=== PATIENT | female | born 1980 | race Caucasian/White ===

== ENCOUNTER 2018-12-05 20:58 | Inpatient (IN) | payer OTHER ==
[~2018-12-05] VITALS: Ht 165.1 cm; Wt 81.6 kg
[2018-12-05 16:07] VITALS: BP 119/83
[2018-12-05 16:53] LABS: HCG UR SG 1.024 (1.003-1.030)
[2018-12-05] MEDS: FENTANYL PF 100 MCG/2ML IV PRN ×2 (20:08→20:15)
[~2018-12-05 20:58] MED LIST: ACETAMINOPHEN 500 MG TABLET ONE; ACETAMINOPHEN 500 MG TABLET PO ONE; ALBUTEROL/IPRATROPIUM 2.5MG/0.5MG, 3 ML NPPB PRN; BACITRACIN OINT 500U/GM, 15 GM ONE; BUPIVACAINE/PF 0.25% INFIL ONE; BUPIVACAINE/PF 0.25% ONE; CEFAZOLIN 1,000 MG ONE; DEXAMETHASONE 4 MG/ML, 1ML ONE; DIAZEPAM 5 MG TABLET ONE; DIAZEPAM 5 MG TABLET PO ONE; EPINEPHRINE 1 MG/ML, 1ML ONE; FENTANYL PF 100 MCG/2ML ONE; FENTANYL PF 250 MCG/5ML ONE; GABAPENTIN 300 MG CAPSULE ONE; GABAPENTIN 300 MG CAPSULE PO ONE; HYDROmorphone 2 MG/ML, 1ML IVPush PRN; KETOROLAC 30 MG/1 ML ONE; LACTATED RINGERS 1,000 ML IV SCH; LIDOCAINE 2%, 6 ML JEL.PF.APP MM ONE; MEPERIDINE/PF 25MG/0.5ML IVPush PRN; MEPERIDINE/PF 25MG/ML,1ML ONE; MIDAZOLAM 1 MG/ML, 2ML IV PRN; MIDAZOLAM 1 MG/ML, 2ML ONE; MINERAL OIL 10 ML VIAL MC ONE; ONDANSETRON 2MG/ML, 2ML IV PRN; ONDANSETRON 2MG/ML, 2ML ONE; OXYC5TAB2 PO; OXYcodone 5 MG/5 ML ORAL.SOL UDC ONE; OXYcodone 5 MG/5 ML ORAL.SOL UDC PO PRN; OxyconTIN ER 20 MG TAB.ER ONE; OxyconTIN ER 20 MG TAB.ER PO ONE; PROMETHAZINE 25 MG/ML, 1ML IV PRN; PROPOFOL 10 MG/ML, 20ML ONE; ROCURONIUM 10MG/ML,5ML ONE; SCOPOLAMINE PATCH, 1.5MG PATCH.TD72 TD PRN; SODIUM CHLORIDE 0.9% 100 ML ONE; SUCCINYLCHOLINE 20 MG/ML, 10ML ONE
[2018-12-05] MEDS ORDERED: OXYcodone/APAP 7.5/325MG TABLET PO PRN (21:00)
[2018-12-06 04:20] VITALS: BP 109/61
[2018-12-06 07:03] VITALS: BP 99/54
[2018-12-06] MEDS ORDERED: OXYC-306 PO (08:57)
== END 2018-12-06 12:30 | disposition home or self-care (01) | DRG 578 ==
LOC: OR 20:58 → 4NOR 21:02 → OR 21:02 → 4NOR 21:43 → DCLOUNGE 12-06 12:17
PROVIDERS: ADMIT Plastic Surgery; ATTEND Plastic Surgery
PROC: 0HQKXZZ Repair Right Lower Leg Skin, External Approach (ICD-10-PCS; 2018-12-05)
PROC: 0HBHXZZ Excision of Right Upper Leg Skin, External Approach (ICD-10-PCS; 2018-12-05)
PROC: 0HRKX74 Replacement of Right Lower Leg Skin with Autologous Tissue Substitute, Partial Thickness, External Approach (ICD-10-PCS; principal; 2018-12-05 17:30)
PROC: 0JBN0ZZ Excision of Right Lower Leg Subcutaneous Tissue and Fascia, Open Approach (ICD-10-PCS; 2018-12-05 17:30)
DX: S81.811A Laceration without foreign body, right lower leg, initial encounter (principal); V29.9XXA Motorcycle rider (driver) (passenger) injured in unspecified traffic accident, initial encounter; J45.909 Unspecified asthma, uncomplicated; Y93.89 Activity, other specified; Y92.89 Other specified places as the place of occurrence of the external cause; Y99.8 Other external cause status
CPT/HCPCS: 81025; G0378; J0171; J0690; J1100; J1885; J2175; J2250; J2405; J2704; J3010; J3490; J0330; J7120

== ENCOUNTER 2019-09-25 17:29 | Emergency (ER) | payer OTHER ==
[~2019-09-25] VITALS: Ht 165.1 cm; Wt 98.2 kg
[~2019-09-25 17:29] MED LIST changes: -ACETAMINOPHEN 500 MG TABLET ONE; -ACETAMINOPHEN 500 MG TABLET PO ONE; -ALBUTEROL/IPRATROPIUM 2.5MG/0.5MG, 3 ML NPPB PRN; -BACITRACIN OINT 500U/GM, 15 GM ONE; -BUPIVACAINE/PF 0.25% INFIL ONE; -BUPIVACAINE/PF 0.25% ONE; -CEFAZOLIN 1,000 MG ONE; -DEXAMETHASONE 4 MG/ML, 1ML ONE; -DIAZEPAM 5 MG TABLET ONE; -DIAZEPAM 5 MG TABLET PO ONE; -EPINEPHRINE 1 MG/ML, 1ML ONE; -FENTANYL PF 100 MCG/2ML ONE; -FENTANYL PF 250 MCG/5ML ONE; -GABAPENTIN 300 MG CAPSULE ONE; -GABAPENTIN 300 MG CAPSULE PO ONE; -HYDROmorphone 2 MG/ML, 1ML IVPush PRN; -KETOROLAC 30 MG/1 ML ONE; -LACTATED RINGERS 1,000 ML IV SCH; -LIDOCAINE 2%, 6 ML JEL.PF.APP MM ONE; -MEPERIDINE/PF 25MG/0.5ML IVPush PRN; -MEPERIDINE/PF 25MG/ML,1ML ONE; -MIDAZOLAM 1 MG/ML, 2ML IV PRN; -MIDAZOLAM 1 MG/ML, 2ML ONE; -MINERAL OIL 10 ML VIAL MC ONE; -ONDANSETRON 2MG/ML, 2ML IV PRN; -ONDANSETRON 2MG/ML, 2ML ONE; +OXYC-306 PO; -OXYcodone 5 MG/5 ML ORAL.SOL UDC ONE; -OXYcodone 5 MG/5 ML ORAL.SOL UDC PO PRN; -OxyconTIN ER 20 MG TAB.ER ONE; -OxyconTIN ER 20 MG TAB.ER PO ONE; -PROMETHAZINE 25 MG/ML, 1ML IV PRN; -PROPOFOL 10 MG/ML, 20ML ONE; -ROCURONIUM 10MG/ML,5ML ONE; -SCOPOLAMINE PATCH, 1.5MG PATCH.TD72 TD PRN; -SODIUM CHLORIDE 0.9% 100 ML ONE; -SUCCINYLCHOLINE 20 MG/ML, 10ML ONE
[2019-09-25 17:57] VITALS: BP 131/85
== END 2019-09-25 19:18 | disposition home or self-care (01) ==
LOC: ED 19:05
DX: J18.9 Pneumonia, unspecified organism (principal)
CPT/HCPCS: 99283

== ENCOUNTER 2020-07-14 10:08 | Outpatient (CLI) | payer OTHER ==
[~2020-07-14] VITALS: Ht 165.1 cm; Wt 102.7 kg
[2020-07-14 10:38] VITALS: BP 127/71
[2020-07-14 11:21] LABS: ALANINE AMINOTRANSFERASE 108 U/L (12-78); ALBUMIN 2.6 g/dL (3.4-5.0); ANION GAP 9 mmol/L (5-15); CALCIUM 8.8 mg/dL (8.5-10.1); CHLORIDE 110 mmol/L (98-107); CREATININE 0.57 mg/dL (0.55-1.02)
[2020-07-14 11:23] LABS: ALKALINE PHOSPHATASE 117 U/L (45-117); BILIRUBIN,TOTAL 0.5 mg/dL (0.2-1.0); TOTAL PROTEIN 6.5 g/dL (6.4-8.2)
[2020-07-14 12:18] LABS: BASOPHILS % (AUTO) 0 % (0-1); EOSINOPHILS % (AUTO) 1 % (1-7); LYMPHOCYTES % (AUTO) 10 % (22-44); MEAN CORPUSCULAR HEMOGLOBIN 30.5 pg (27.0-34.8); MEAN CORPUSCULAR HGB CONC 33.6 g/dL (32.4-35.8); MEAN PLATELET VOLUME 8.9 fL (7.4-10.4); MONOCYTES % (AUTO) 7 % (2-9); NEUTROPHILS % (AUTO) 82 % (42-75); PLATELET COUNT 290 x10^3/uL (130-400); RED BLOOD COUNT 4.31 x10^6/uL (3.82-5.3); RED CELL DISTRIBUTION WIDTH 13.9 % (9.6-15.2)
[2020-07-14 12:33] LABS: MD SCAN
[2020-07-14 12:33] LABS: CREATININE,URINE RANDOM < 13.00 mg/dL; TOTAL PROTEIN,URINE RANDOM < 5 mg/dL (0-12)
[2020-07-14] MEDS ORDERED: URSO300C12 PO (13:08)
== END 2020-07-14 13:30 | disposition home or self-care (01) ==
LOC: LDOP 10:08
PROVIDERS: ATTEND Obstetrics & Gynecology
DX: O09.93 Supervision of high risk pregnancy, unspecified, third trimester (principal); O26.893 Other specified pregnancy related conditions, third trimester; L29.9 Pruritus, unspecified; Z3A.35 35 weeks gestation of pregnancy
CPT/HCPCS: 36415; 59025; 76819; 80053; 82239; 82570; 84156; 85025

== ENCOUNTER 2020-07-19 15:09 | Outpatient (CLI) | payer OTHER ==
[~2020-07-19 15:09] MED LIST changes: +URSO300C12 PO
[2020-07-19 15:21] VITALS: BP 131/79
[2020-07-19 16:41] LABS: ALANINE AMINOTRANSFERASE 60 U/L (12-78); ALBUMIN 2.6 g/dL (3.4-5.0); ANION GAP 9 mmol/L (5-15); CALCIUM 8.6 mg/dL (8.5-10.1); CHLORIDE 110 mmol/L (98-107)
[2020-07-19 16:43] LABS: ALKALINE PHOSPHATASE 111 U/L (45-117); BILIRUBIN,TOTAL 0.4 mg/dL (0.2-1.0); CREATININE 0.61 mg/dL (0.55-1.02); TOTAL PROTEIN 6.5 g/dL (6.4-8.2)
== END 2020-07-19 16:58 | disposition home or self-care (01) ==
LOC: LDOP 15:09
PROVIDERS: ATTEND Obstetrics & Gynecology
DX: O09.893 Supervision of other high risk pregnancies, third trimester (principal); Z3A.35 35 weeks gestation of pregnancy
CPT/HCPCS: 36415; 59025; 80053

== ENCOUNTER 2020-07-29 10:08 | Inpatient (IN) | payer OTHER ==
[~2020-07-29] VITALS: Ht 165.1 cm; Wt 100.4 kg
[2020-07-29 10:39] VITALS: BP 140/81
[2020-07-29] MEDS ORDERED: SODIUM CITRATE/CITRIC ACID 30 ML UDC PO ONE (11:00)
[2020-07-29] MEDS ORDERED: LACTATED RINGERS 1,000 ML IV SCH (11:00)
[2020-07-29] MEDS ORDERED: METOCLOPRAMIDE 5 MG/ML, 2ML IV ONE (11:00)
[2020-07-29] MEDS ORDERED: LACTATED RINGERS 1,000 ML IVBOLUS ONE (11:00)
[2020-07-29] MEDS ORDERED: NEWBORN KIT ONE (11:03)
[2020-07-29] MEDS ORDERED: OXYTOCIN 30U/ 0.9% NaCL 500ML 500 ML ONE (11:03)
[2020-07-29 11:04] LABS: BASOPHILS % (AUTO) 1 % (0-1); EOSINOPHILS % (AUTO) 1 % (1-7); LYMPHOCYTES % (AUTO) 14 % (22-44); MEAN CORPUSCULAR HEMOGLOBIN 30.2 pg (27.0-34.8); MEAN CORPUSCULAR HGB CONC 33.5 g/dL (32.4-35.8); MEAN PLATELET VOLUME 8.3 fL (7.4-10.4); MONOCYTES % (AUTO) 6 % (2-9); NEUTROPHILS % (AUTO) 79 % (42-75); PLATELET COUNT 291 x10^3/uL (130-400); RED BLOOD COUNT 4.36 x10^6/uL (3.82-5.3); RED CELL DISTRIBUTION WIDTH 13.7 % (9.6-15.2)
[2020-07-29] MEDS ORDERED: METOCLOPRAMIDE 5 MG/ML, 2ML ONE ×2 (11:04→12:15)
[2020-07-29] MEDS ORDERED: SODIUM CITRATE/CITRIC ACID 15 ML UDC ONE (11:04)
[2020-07-29 11:08] LABS: MD NO
[2020-07-29] MEDS ORDERED: PROMETHAZINE 25 MG/ML, 1ML IVPush PRN (12:00)
[2020-07-29] MEDS ORDERED: EPHEDRINE 50 MG/ML, 1ML IVPush PRN (12:00)
[2020-07-29] MEDS ORDERED: FENTANYL PF 100 MCG/2ML IV PRN (12:00)
[2020-07-29] MEDS ORDERED: MEPERIDINE/PF 25MG/0.5ML IVPush PRN (12:00)
[2020-07-29] MEDS ORDERED: OXYcodone 5 MG/5 ML ORAL.SOL UDC PO PRN (12:00)
[2020-07-29] MEDS ORDERED: ONDANSETRON 2MG/ML, 2ML IVPush PRN (12:00)
[2020-07-29] MEDS ORDERED: morphine SULFATE 10 MG/ML, 1ML IVPush PRN (12:00)
[2020-07-29] MEDS ORDERED: SODIUM CITRATE/CITRIC ACID 30 ML UDC ONE (12:15)
[2020-07-29] MEDS ORDERED: CEFAZOLIN 1,000 MG ONE (12:15)
[2020-07-29] MEDS ORDERED: OXYTOCIN 10 UNITS/ML, 1ML ONE (12:15)
[2020-07-29] MEDS ORDERED: ONDANSETRON 2MG/ML, 2ML IV PRN (13:30)
[2020-07-29] MEDS ORDERED: MISOPROSTOL 200 MCG TABLET PR PRN (13:30)
[2020-07-29] MEDS ORDERED: MORPHINE SULFATE 4 MG/ML, 1ML IVPush PRN (13:30)
[2020-07-29] MEDS: LACTATED RINGERS 1,000 ML IV SCH ×4 (13:30→23:30)
[2020-07-29] MEDS: OXYTOCIN 30U/ 0.9% NaCL 500ML 500 ML IV SCH ×2 (14:04→23:30)
[2020-07-29] MEDS ORDERED: OXYcodone 5 MG/5 ML ORAL.SOL UDC ONE (15:02)
[2020-07-29 16:10] VITALS: BP 120/73
[2020-07-29] MEDS: OXYcodone IR 5MG TABLET PO PRN (19:20)
[2020-07-29] MEDS: KETOROLAC 30 MG/1 ML IV SCH (19:20)
[2020-07-29 19:30] VITALS: BP 111/73
[2020-07-30] VITALS: BP 123/79
[2020-07-30] MEDS: OXYcodone IR 5MG TABLET PO PRN ×6 (00:01→20:08)
[2020-07-30] MEDS: KETOROLAC 30 MG/1 ML IV SCH ×4 (01:15→20:07)
[2020-07-30 04:15] VITALS: BP 107/72
[2020-07-30] MEDS: LACTATED RINGERS 1,000 ML IV SCH ×5 (05:30→21:30)
[2020-07-30 06:50] LABS: BASOPHILS % (AUTO) 0 % (0-1); EOSINOPHILS % (AUTO) 2 % (1-7); LYMPHOCYTES % (AUTO) 16 % (22-44); MEAN CORPUSCULAR HEMOGLOBIN 31.2 pg (27.0-34.8); MEAN PLATELET VOLUME 8.5 fL (7.4-10.4); MONOCYTES % (AUTO) 8 % (2-9); NEUTROPHILS % (AUTO) 74 % (42-75); PLATELET COUNT 263 x10^3/uL (130-400); RED BLOOD COUNT 3.74 x10^6/uL (3.82-5.3); RED CELL DISTRIBUTION WIDTH 14.1 % (9.6-15.2)
[2020-07-30 06:54] LABS: MD NO
[2020-07-30] MEDS: DOCUSATE 100 MG CAPSULE PO PRN ×2 (08:04→20:07)
[2020-07-30] MEDS: PRENATAL VIT/IRON/FA 1 EACH TABLET PO SCH (08:04)
[2020-07-30] MEDS: SIMETHICONE 80 MG CHEW TAB PO PRN ×3 (08:04→20:07)
[2020-07-30 08:50] VITALS: BP 117/81
[2020-07-30] MEDS: OXYTOCIN 30U/ 0.9% NaCL 500ML 500 ML IV SCH ×2 (09:08→19:30)
[2020-07-30 19:49] VITALS: BP 131/81
[2020-07-30] MEDS: ACETAMINOPHEN 325 MG TABLET PO PRN (20:07)
[2020-07-31] MEDS: KETOROLAC 30 MG/1 ML IV SCH ×3 (01:52→14:13)
[2020-07-31] MEDS: SIMETHICONE 80 MG CHEW TAB PO PRN ×3 (01:52→21:26)
[2020-07-31] MEDS: ACETAMINOPHEN 325 MG TABLET PO PRN (04:36)
[2020-07-31] MEDS: OXYcodone IR 5MG TABLET PO PRN ×2 (04:36)
[2020-07-31] MEDS: OXYTOCIN 30U/ 0.9% NaCL 500ML 500 ML IV SCH ×2 (05:30→15:30)
[2020-07-31] MEDS: LACTATED RINGERS 1,000 ML IV SCH ×5 (05:30→21:30)
[2020-07-31 07:45] VITALS: BP 135/65
[2020-07-31] MEDS: DOCUSATE 100 MG CAPSULE PO PRN ×2 (12:14→21:26)
[2020-07-31] MEDS: PRENATAL VIT/IRON/FA 1 EACH TABLET PO SCH (12:14)
[2020-07-31] MEDS: OXYcodone/APAP 5/325MG TABLET PO PRN ×3 (12:14→23:00)
[2020-07-31] MEDS ORDERED: KETOROLAC 30 MG/1 ML ONE (14:11)
[2020-07-31] MEDS ORDERED: DIPH,PERTUSS(ACELL),TET VAC/PF NC IM-VACC ONE ×2 (17:10→18:00)
[2020-07-31] MEDS ORDERED: MEASLES,MUMPS&RUBELLA VACC/PF 0.5 ML SQ-VACC ONE ×2 (17:10→18:00)
[2020-07-31] MEDS: IBUPROFEN 600 MG TABLET PO PRN (21:26)
[2020-07-31 21:30] VITALS: BP 131/79
[2020-08-01] MEDS: OXYTOCIN 30U/ 0.9% NaCL 500ML 500 ML IV SCH (01:30)
[2020-08-01] MEDS: LACTATED RINGERS 1,000 ML IV SCH ×2 (01:30→05:30)
[2020-08-01] MEDS: SIMETHICONE 80 MG CHEW TAB PO PRN ×2 (03:41→10:24)
[2020-08-01] MEDS: IBUPROFEN 600 MG TABLET PO PRN ×3 (03:41→21:25)
[2020-08-01] MEDS: OXYcodone/APAP 5/325MG TABLET PO PRN (03:42)
[2020-08-01 07:25] VITALS: BP 129/85
[2020-08-01] MEDS ORDERED: IBUP-1222 PO (08:04)
[2020-08-01] MEDS ORDERED: OXYC-302 PO (08:04)
[2020-08-01] MEDS: DOCUSATE 100 MG CAPSULE PO PRN ×2 (10:25→21:25)
[2020-08-01] MEDS: PRENATAL VIT/IRON/FA 1 EACH TABLET PO SCH (10:25)
[2020-08-01 20:00] VITALS: BP 120/80
[2020-08-02 07:45] VITALS: BP 131/83
[2020-08-02] MEDS: PRENATAL VIT/IRON/FA 1 EACH TABLET PO SCH (08:26)
[2020-08-02] MEDS: DOCUSATE 100 MG CAPSULE PO PRN (08:26)
[2020-08-02] MEDS: IBUPROFEN 600 MG TABLET PO PRN (08:26)
== END 2020-08-02 12:28 | disposition home or self-care (01) | DRG 786 ==
LOC: LDIP 10:08 → 2NW 16:01
PROVIDERS: ADMIT Obstetrics & Gynecology; ATTEND Obstetrics & Gynecology
PROC: 10D00Z1 Extraction of Products of Conception, Low, Open Approach (ICD-10-PCS; principal; 2020-07-29)
DX: O34.211 Maternal care for low transverse scar from previous cesarean delivery (principal); K83.1 Obstruction of bile duct; O26.62 Liver and biliary tract disorders in childbirth; K66.0 Peritoneal adhesions (postprocedural) (postinfection); Z37.0 Single live birth; Z3A.37 37 weeks gestation of pregnancy; Z20.828 Contact with and (suspected) exposure to other viral communicable diseases; O99.62 Diseases of the digestive system complicating childbirth
CPT/HCPCS: 36415; 82803; 82947; 85025; 86592; 86850; 86900; 87635; 90715; G0378; J0690; J1885; C1765; J2590; J2765; J7120